=== PATIENT | male | born 1985 | race Caucasian/White ===

== ENCOUNTER 2017-08-26 15:53 | Emergency (ER) | payer SELFPAY ==
[~2017-08-26] VITALS: Ht 165.1 cm; Wt 74.4 kg
[~2017-08-26 15:53] MED LIST: AMOX500T PO; ANTISOL30 RIGHT EAR; AUGM875T PO; HYDR-3533 PO; MEDR4PAK3 PO; PERC5TAB12 PO
[2017-08-26 16:08] VITALS: BP 127/79; PULSE 69; RESP 18; TEMP 98.4; O2SAT 98
--- NOTE | 2017-08-26 16:53 | PD ---
HPI Chief Complaint: Oral / Dental Pain or Problem Time Seen by Provider: 16:41 Travel History International Travel<30 days: No Contact w/Intl Traveler<30days: No Traveled to known affect area: No History of Present Illness HPI 32yo M with no significant PMH presents to the ED with c/o tooth pain for 1 week. Said he somehow fracture his left lower tooth a week ago. He had filling for that tooth about 8 years ago. States now pain is radiating from the tooth to around left ear. Denies any fever, drooling, change in voice, chest pain, sob, n/v, abdominal pain. Took advil with little relieve. Said he will go to dentist tomorrow but just cant take the pain anymore. PFSH Past Medical History Hx Anticoagulant Therapy: No Cardiovascular Problems: No Chemotherapy: No Cerebrovascular Accident: No Diabetes: No Diminished Hearing: No Respiratory: No ?: Not Past Surgical History Hysterectomy: No Oral Surgery: Yes (ROOT CANALS, TOOTH EXTRACTIONS) Social History Alcohol Use: Yes (Occ.) Tobacco Use: Yes (1/2 PPD) Substance Use: No Allergies-Medications (Allergen,Severity, Reaction): Coded Allergies: No Known Allergies (Verified , 08/26/17) Reported Meds & Prescriptions Reported Meds & Active Scripts Active No Active Prescriptions or Reported Medications Review of Systems Except as stated in HPI: all other systems reviewed are Neg Physical Exam Narrative GENERAL: 32yo M in mild distress. SKIN: Focused skin assessment warm/dry. HEAD: Atraumatic. Normocephalic. EYES: Pupils equal and round. No scleral icterus. No injection or drainage. ENT: Mouth: +Fractured tooth #19, part of the filling is out. Do not see any pulp. There are multiple teeth missing as well. Poor dentition. Uvula midline. Patent airway. No malocclusion. TM wnl bilaterally. No facial swelling. No periapical abscess. NECK: Trachea midline. No JVD. CARDIOVASCULAR: Regular rate and rhythm. No murmur appreciated. RESPIRATORY: No accessory muscle use. Clear to auscultation. Breath sounds equal bilaterally. GASTROINTESTINAL: Abdomen soft, non-tender, nondistended. MUSCULOSKELETAL: No obvious deformities. No clubbing. No cyanosis. No edema. NEUROLOGICAL: Awake and alert. No obvious cranial nerve deficits. Motor grossly within normal limits. Normal speech. PSYCHIATRIC: Appropriate mood and affect; insight and judgment normal. Data Data Last Documented VS Vital Signs Date Time Temp Pulse Resp B/P (MAP) Pulse Ox O2 Delivery O2 Flow Rate FiO2 08/26/17 16:08 98.4 69 18 127/79 (95) 98 Orders Orders Acetaminophen (Tylenol) (08/26/17 17:00) Bupivacaine Pf 0.25% Inj (Marcaine Pf 0. (08/26/17 17:00) MDM Medical Decision Making Medical Screen Exam Complete: Yes Emergency Medical Condition: Yes Differential Diagnosis Dental pain vs. Fractured tooth vs. removal of tooth filling Narrative Course 32yo M with pain in tooth #19 after part of the filling came out a week ago. Do not see pulp. Inferior alveolar block performed and pt is now pain free. Pt now said that his dental appointment is next week so will give a few days of pain medication and antibiotics. Pt is nontoxic appearing and return precautions given. Tolerating PO. Procedures Procedure Narrative Inferior alveolar nerve block: Risks and benefits explained to patient and patient consented to procedure. 1.5 cc of Marcaine 0.25% used to perform the inferior alveolar block. Pt tolerated procedure well. Diagnosis Primary Impression: Pain, dental Patient Instructions: General Instructions Departure Forms: Tests/Procedures Additional Instructions: Please follow up with your dentist as soon as possible. Return to the ED if symptoms worsen. Med/Other Pt SpecificInfo: Prescription(s) given Scripts Hydrocodone-Acetaminophen (Lortab) 5-325 Mg Tab 1 TAB PO Q6H Y for PAIN, #7 TAB 0 Refills Prov: Nicole Quach DO 08/26/17 Clindamycin (Clindamycin) 300 Mg Cap 300 MG PO Q6H for Infection for 7 Days, #28 CAP 0 Refills Prov: Nicole Quach DO 08/26/17 Disposition: 01 DISCHARGE HOME Condition: Stable Nicole Quach DO Aug 26, 2017 16:53
[2017-08-26] MEDS ORDERED: BUPIVACAINE HCL PF 0.25% 10 ML VIAL NERV BLOCK ONE (17:00)
[2017-08-26] MEDS ORDERED: BUPIVACAINE HCL PF 0.25% 30 ML VIAL INFIL ONE (17:00)
[2017-08-26] MEDS ORDERED: ACETAMINOPHEN 325 MG TAB PO ONE (17:00)
[2017-08-26] MEDS ORDERED: HYDR-3533 PO (18:00)
[2017-08-26] MEDS ORDERED: CLIN1CAP6 PO (18:00)
== END 2017-08-26 18:13 | disposition home or self-care (01) ==
LOC: PHED 15:53
DX: K08.89 Other specified disorders of teeth and supporting structures (principal); F17.200 Nicotine dependence, unspecified, uncomplicated
CPT/HCPCS: 64400

== ENCOUNTER 2017-12-31 09:14 | Emergency (ER) | payer SELFPAY ==
[~2017-12-31] VITALS: Ht 165.1 cm; Wt 71.2 kg
[~2017-12-31 09:14] MED LIST changes: -AMOX500T PO; -ANTISOL30 RIGHT EAR; -AUGM875T PO; +CLIN300C5 PO; -MEDR4PAK3 PO; -PERC5TAB12 PO
[2017-12-31 09:19] VITALS: BP 130/76; PULSE 105; RESP 16; TEMP 98.6; O2SAT 99
--- NOTE | 2017-12-31 09:42 | PD ---
HPI Chief Complaint: Cold / Flu Symptoms Time Seen by Provider: 09:22 Travel History International Travel<30 days: No Contact w/Intl Traveler<30days: No Traveled to known affect area: No History of Present Illness HPI 32-year-old otherwise healthy male presents to the emergency room for evaluation of diarrhea and fatigue for the past 3 days. States he has had diarrhea "every 15 minutes." He denies any precedent antibiotic use. He noticed what appeared to be blood in 1 stool. States yesterday he developed a fever of 100.7. He has not been taking anything for his symptoms. He has associated chills, decreased appetite. No nausea, vomiting, or abdominal pain. Patient also notes that he developed left-sided facial swelling yesterday. Denies any significant dental pain. He took some leftover amoxicillin yesterday and the swelling seemed to decrease. He has history of abscesses in the past. He developed a cough today. Denies congestion or sore throat. PFSH Past Medical History Hx Anticoagulant Therapy: No Cardiovascular Problems: No Chemotherapy: No Cerebrovascular Accident: No Diabetes: No Diminished Hearing: No Respiratory: No Tetanus Vaccination: Unknown Influenza Vaccination: No Past Surgical History Hysterectomy: No Oral Surgery: Yes (ROOT CANALS, TOOTH EXTRACTIONS) Social History Alcohol Use: Yes (Occ.) Tobacco Use: Yes (1/2 PPD) Substance Use: No Allergies-Medications (Allergen,Severity, Reaction): Coded Allergies: No Known Allergies (Verified Adverse Reaction, Unknown, 12/31/17) Reported Meds & Prescriptions Reported Meds & Active Scripts Active Tamiflu (Oseltamivir Phosphate) 75 Mg Cap 75 Mg PO BID 5 Days Penicillin V Potassium 500 Mg Tab 500 Mg PO Q6H 7 Days Review of Systems Except as stated in HPI: all other systems reviewed are Neg Physical Exam Narrative GENERAL: Well-nourished, well-developed male in no acute distress. Afebrile. Ambulatory. SKIN: Focused skin assessment warm/dry. HEAD: Normocephalic. EYES: No scleral icterus. No injection or drainage. DENTAL: Moderate to severe decay throughout. No malocclusion. There is moderate erythema, edema, and tenderness to palpation around tooth #21 which is severely decayed. No significant fluctuance. ENT: Mucosa pink and moist. No erythema or exudates. No uvular edema. No uvular , palatal, or tonsillar deviation. Airway patent. Nasal turbinates appear normal without nasal blood, purulent drainage or septal hematoma. EARS: Bilateral pinnae and external canals appear within normal limits. Bilateral tympanic membranes without erythema, dullness or perforation. NECK: Supple, trachea midline. No JVD or lymphadenopathy. CARDIOVASCULAR: Regular rate and rhythm without murmurs, gallops, or rubs. RESPIRATORY: Breath sounds equal bilaterally. No accessory muscle use. GASTROINTESTINAL: Abdomen soft, non-tender, nondistended. No rebound tenderness or peritoneal signs. Data Data Last Documented VS Vital Signs Date Time Temp Pulse Resp B/P (MAP) Pulse Ox O2 Delivery O2 Flow Rate FiO2 12/31/17 09:19 98.6 105 16 130/76 (94) 99 Orders Orders Complete Blood Count With Diff (12/31/17 09:26) Basic Metabolic Panel (Bmp) (12/31/17 09:26) Influenzae A/B Antigen (12/31/17 09:26) Ed Discharge Order (12/31/17 10:31) Labs Laboratory Tests Test 12/31/17 09:43 White Blood Count 12.6 TH/MM3 Red Blood Count 5.33 MIL/MM3 Hemoglobin 15.3 GM/DL Hematocrit 44.6 % Mean Corpuscular Volume 83.7 FL Mean Corpuscular Hemoglobin 28.7 PG Mean Corpuscular Hemoglobin Concent 34.3 % Red Cell Distribution Width 12.3 % Platelet Count 237 TH/MM3 Mean Platelet Volume 8.2 FL Neutrophils (%) (Auto) 63.9 % Lymphocytes (%) (Auto) 21.0 % Monocytes (%) (Auto) 13.6 % Eosinophils (%) (Auto) 0.7 % Basophils (%) (Auto) 0.8 % Neutrophils # (Auto) 8.1 TH/MM3 Lymphocytes # (Auto) 2.6 TH/MM3 Monocytes # (Auto) 1.7 TH/MM3 Eosinophils # (Auto) 0.1 TH/MM3 Basophils # (Auto) 0.1 TH/MM3 CBC Comment DIFF FINAL Differential Comment Blood Urea Nitrogen 8 MG/DL Creatinine 0.80 MG/DL Random Glucose 82 MG/DL Calcium Level 8.7 MG/DL Sodium Level 136 MEQ/L Potassium Level 3.6 MEQ/L Chloride Level 104 MEQ/L Carbon Dioxide Level 24.6 MEQ/L Anion Gap 7 MEQ/L Estimat Glomerular Filtration Rate 113 ML/MIN MDM Medical Decision Making Medical Screen Exam Complete: Yes Emergency Medical Condition: Yes Medical Record Reviewed: Yes Differential Diagnosis Dentalgia, dental abscess, influenza, gastroenteritis, IBS, IBD Narrative Course 32-year-old male presents to the emergency room for evaluation of 2 complaints. First complaint is diarrhea and weakness that started 3 days ago and has been occurring extremely frequently. He has associated decreased appetite but no nausea, vomiting, or abdominal pain. Second complaint is facial swelling, fever , chills, that started yesterday. No significant dental pain. Moderate to severe decay throughout. There is moderate erythema, edema, and tenderness to palpation around tooth #21 which is severely decayed. No significant fluctuance. Physical exam is reassuring. Vital signs stable. He is afebrile and has not taken anything for symptoms today. Patient resting comfortably in bed. Abdomen soft, nontender. No peritoneal signs. Hemoccult negative. There is obvious abscess to tooth #21 with mild associated facial swelling. CBC and BMP are essentially unremarkable. Patient has mild elevation in white count without left shift. Patient is positive for influenza A which would explain most of his symptoms. However I do believe he has a dental abscess as well. He will be discharged with prescriptions for penicillin and Tamiflu. Told to follow-up with a primary care physician or return for worsening symptoms. He understands and agrees to plan. [facility] Point of Care Internal Pos. & Neg. Controls: Passed Fecal Specimen Occult Blood: Negative Diagnosis Primary Impression: Dental abscess Additional Impression: Influenza A Referrals: Dentist Primary Care Physician Additional Instructions: Rest and drink plenty of fluids. Tamiflu and penicillin as directed, until gone. Follow-up with a dentist. Return to the emergency room for worsening symptoms. Med/Other Pt SpecificInfo: Prescription(s) given Scripts Oseltamivir (Tamiflu) 75 Mg Cap 75 MG PO BID for Mgmt Viral Infection for 5 Days, #10 CAP 0 Refills Prov: Braulio Arroyo MD 12/31/17 Penicillin V Potassium (Penicillin V Potassium) 500 Mg Tab 500 MG PO Q6H for Infection for 7 Days, #28 TAB 0 Refills Prov: Braulio Arroyo MD 12/31/17 Disposition: 01 DISCHARGE HOME Condition: Stable Cari Li Dec 31, 2017 09:42
[2017-12-31 09:48] LABS: AUTOMATED NEUTROPHIL # 8.1 TH/MM3 (1.8-7.7); BASOPHIL # 0.1 TH/MM3 (0-0.2); BASOPHIL % 0.8 % (0.0-2.0); EOSINOPHIL # 0.1 TH/MM3 (0-0.4); EOSINOPHIL % 0.7 % (0.0-4.0); HEMATOCRIT 44.6 % (39.0-51.0); HEMOGLOBIN 15.3 GM/DL (13.0-17.0); LYMPHOCYTE # 2.6 TH/MM3 (1.0-4.8); MEAN CELL VOLUME 83.7 FL (80.0-100.0); MEAN CORPUSCULAR HEMOGLOBIN 28.7 PG (27.0-34.0); MEAN CORPUSCULAR HGB CONC 34.3 % (32.0-36.0); MEAN PLATELET VOLUME 8.2 FL (7.0-11.0); MONO % 13.6 % (0.0-8.0); MONOCYTE # 1.7 TH/MM3 (0-0.9); NEUT % 63.9 % (16.0-70.0); PLATELET COUNT 237 TH/MM3 (150-450); RED BLOOD COUNT 5.33 MIL/MM3 (4.50-5.90); RED CELL DISTRIBUTION WIDTH 12.3 % (11.6-17.2); WHITE BLOOD COUNT 12.6 TH/MM3 (4.0-11.0)
[2017-12-31] MEDS ORDERED: OSEL75 PO (10:10)
[2017-12-31] MEDS ORDERED: PENI500T PO (10:10)
[2017-12-31 10:25] LABS: CALCIUM 8.7 MG/DL (8.5-10.1)
[2017-12-31 10:26] LABS: BICARBONATE 24.6 MEQ/L (21.0-32.0)
[2017-12-31 10:29] LABS: CREATININE 0.8 MG/DL (0.60-1.30)
== END 2017-12-31 10:42 | disposition home or self-care (01) ==
LOC: PHED 09:14
DX: K04.7 Periapical abscess without sinus (principal); J09.X2 Influenza due to identified novel influenza A virus with other respiratory manifestations; F17.210 Nicotine dependence, cigarettes, uncomplicated
CPT/HCPCS: 80048; 85025; 87804; 99283